=== PATIENT | male | born 1995 | race Caucasian/White ===

== ENCOUNTER 2020-12-31 03:14 | Emergency (ER) | payer BC, OTHER ==
[~2020-12-31] VITALS: Ht 195.6 cm; Wt 120.2 kg
[2020-12-31 03:16] VITALS: BP 145/101
[2020-12-31] MEDS ORDERED: LEVAQUIN 500 M500 MG PO (03:37)
[2020-12-31] MEDS ORDERED: NORCO5 PO (03:37)
[2020-12-31 03:42] LABS: URINE BILIRUBIN NEGATIVE (Negative); URINE BLOOD NEGATIVE (Negative); URINE CLARITY CLEAR; URINE COLOR YELLOW; URINE GLUCOSE-RANDOM* NEGATIVE (Negative); URINE KETONES NEGATIVE (Negative); URINE LEUKOCYTES-REFLEX NEGATIVE (Negative); URINE NITRITE-REFLEX NEGATIVE (Negative); URINE PROTEIN (DIPSTICK) NEGATIVE (Negative); URINE UROBILINOGEN 0.2 E.U./dl (0.2-1.0)
== END 2020-12-31 03:59 | disposition home or self-care (01) ==
LOC: ER 03:14
PROVIDERS: Emergency Medicine
DX: N45.1 Epididymitis (principal)